=== PATIENT | female | born 1945 | race Caucasian/White ===

== ENCOUNTER 2018-05-13 15:55 | Emergency (ER) | payer OTHER ==
[~2018-05-13] VITALS: Ht 162.6 cm; Wt 68.0 kg
[~2018-05-13 15:55] MED LIST: ADULT LOW DOSE81 MG PO; CELEBREX 200 M200 M1; CRESTOR; DITROPAN XL5 MG; EFFEXOR XR150 MG; EFFEXOR25 MG PO; FLEXERIL PO; HYDROCODONE-AP1 EAC6 PO; HYZAAR PO; IMITREX100 MG; LAMOTRIGINE25 M2; LIPITOR; MIRAPEX1 MG; NORCO 5-325 TA1 EACH PO; PRILOSEC40 MG; SYNTHROID; TOVIAZ8 MG; VOLTAREN100 GM; ZETIA10 MG; ZOVIRAX15 GM
[2018-05-13 18:52] VITALS: BP 127/66
== END 2018-05-13 18:54 | disposition short-term general hospital (02) ==
LOC: M.ERS 15:55
DX: S12.590A Other displaced fracture of sixth cervical vertebra, initial encounter for closed fracture (principal); S01.411A Laceration without foreign body of right cheek and temporomandibular area, initial encounter; J44.9 Chronic obstructive pulmonary disease, unspecified; E89.0 Postprocedural hypothyroidism; G43.909 Migraine, unspecified, not intractable, without status migrainosus; E78.00 Pure hypercholesterolemia, unspecified; K21.9 Gastro-esophageal reflux disease without esophagitis; F32.9 Major depressive disorder, single episode, unspecified; Z90.49 Acquired absence of other specified parts of digestive tract; Z90.710 Acquired absence of both cervix and uterus; W01.0XXA Fall on same level from slipping, tripping and stumbling without subsequent striking against object, initial encounter; Y93.89 Activity, other specified; Y92.89 Other specified places as the place of occurrence of the external cause; Y99.8 Other external cause status